=== PATIENT | male | born 1990 | race African-American/Black ===

== ENCOUNTER 2018-12-26 01:34 | Inpatient (IN) ==
[2018-12-26] MEDS ORDERED: ZOFRAN IV ONE (03:45)
[2018-12-26] MEDS ORDERED: NS 1,000 ML IV ONE ×2 (03:45→06:20)
--- NOTE | 2018-12-26 03:55 | PROVIDER DOCUMENTATION ---
HPI-Abdominal Pain/GI Problem - General Chief Complaint: N/V/D Stated Complaint: 24 HOUR BUG Time Seen by Provider: 12/26/18 03:12 Source: patient Allergies/Adverse Reactions: Patient Allergies Allergy/AdvReac Type Severity Reaction Status Date / Time No Known Allergies Allergy Verified 12/26/18 03:07 Home Medications: Home Medication List Medication Instructions Recorded Confirmed Last Taken Type NK [No Home Medications] 12/26/18 12/26/18 Unknown History - History of Present Illness-ABD Nature of Presenting Problems: 28 yo AAM presents with vomiting which started abut 12 hours ago and has not stopped. He has had a few loose stools but no fever or chills. Multiple patients are in ER with similar symptoms. His only abdominal surgery has been a FORENSIC PSYCHIATRIST shunt. Review of Systems - Adult - REVIEW OF SYSTEMS - ADULT ROS:: limited per condition Constitutional: reports: no symptoms reported Eyes: reports: no symptoms reported Ears, Nose, Mouth & Throat: reports: no symptoms reported Cardiovascular: reports: no symptoms reported Respiratory: reports: no symptoms reported Gastrointestinal: reports: see HPI, vomiting Genitourinary: reports: no symptoms reported Musculoskeletal: reports: no symptoms reported Integumentary: reports: no symptoms reported Neurological: reports: no symptoms reported Past History - Adult - PAST MEDICAL HISTORY-ADULT Review of Records: reports: Nursing Assessment Review - SOCIAL HISTORY Smoking: denies Substance Use: none/never Alcohol Use Frequency: never Physical Exam-General - PHYSICAL EXAM-ADULT Initial Vital Signs Reviewed: Yes - CONSTITUTIONAL General Appearance: alert, no apparent distress - EYES Eyes: PERRL/EOMI, pink conjunctivae - HEAD, EARS, NOSE, MOUTH & THROAT HENMT: normocephalic/atraumatic, moist mucous membranes, normal ENT inspection - NECK Neck: supple, normal inspection - RESPIRATORY Respiratory: chest non-tender, lungs clear, normal breath sounds - CARDIOVASCULAR Cardiovascular: normal peripheral pulses, regular rate, rhythm, no edema - GASTROINTESTINAL (ABDOMEN) Abdominal Exam: normal bowel sounds, non tender, soft, no organomegaly - LYMPHATIC Lymphatic: no adenopathy - MUSCULOSKELETAL Back Exam: normal inspection, no CVA tenderness, no vertebral tenderness Extremity: normal range of motion, non-tender - SKIN Integumentary: normal color, normal turgor, warm/dry - NEUROLOGIC Neurologic: grossly normal, no motor/sensory deficits - PSYCHIATRIC Psych/Mental Status: normal mood/affect, normal thought content, normal thought process, oriented x 3 Progress - PLAN OF CARE/RESULTS Progress/Plan/Lab Results: Vital Signs - 8 hr 12/26/18 03:02 Temperature 98.3 F Pulse Rate 71 Respiratory Rate 20 Blood Pressure 112/72 O2 Sat by Pulse Oximetry 99 Orders Category Date Time Status CBC WITH ELECTRONIC DIFF [HEME] Stat Lab 12/26/18 03:45 Uncollected COMPREHENSIVE METABOLIC PANEL [CHEM] Stat Lab 12/26/18 03:[address] W/POSS RFLX CULT [URINALYSIS] Stat Lab 12/26/18 03:08 Uncollected 0.9% Sodium Chloride Inj [Ns] 1,000 ml Med 12/26/18 03:45 Active IV 999 mls/hr Ondansetron [Zofran] Med 12/26/18 03:45 Discontinued 8 mg IV NOW ONE Result Diagrams: 12/26/18 04:15 12/26/18 04:15 - CT/MRI 1 CT Study: Abdomen, Pelvis ( FINDINGS: The gallbladder is contracted. No calcified stones or adjacent inflammation. The stomach is distended with fluid and debris. There are fluid distended small bowel loops. The distal small bowel loops are not distended. Normal liver, spleen, pancreas, adrenal glands, and kidneys. No hydronephrosis. Normal aorta. The urinary bladder is moderately distended and is normal. The scattered pelvic phleboliths. Normal appendix. No abscess. IMPRESSION: Early or partial small bowel obstruction.) Departure - Departure Date of Disposition Decision: 12/26/18 Time of Disposition Decision: 07:34 DIAGNOSIS: SBO (small bowel obstruction) Disposition: ADMITTED INPATIENT 09 Certified Medical Emergency: Emergent Condition: Stable Referrals and Follow-Ups: None,PCP [Primary Care Provider] - Work Excuses: Return to School/Parent Work - Critical Care Note This patient required my direct & personal management of CC.: No Attestation - Physician/ ANNIKA Attestation The physician spent face to face time with patient:: Yes Advanced Practice Provider documentation review:: Supervising physician onsite and consulted in the evaluation and care of this patient. The physician did have a face to face encounter with the patient.
[2018-12-26 05:17] LABS: BASO# 0.02 X1000 (0.0-0.2); BASO% 0.3 % (0.0-0.8); EOS# 0.05 X1000 (0.0-0.7); EOS% 0.7 % (0.0-10.0); HEMATOCRIT 49.3 % (42.0-52.0); HEMOGLOBIN 15.4 g/dL (14.0-18.0); IMM GRAN# 0.02 X1000 (0.0-0.04); IMM GRAN% 0.3 % (0.0-0.5); LYMPH% 18.6 % (20.5-51.1); MCH 25.2 PG (27-31); MCHC 31.2 g/dL (33-37); MCV 80.7 FL (81-99); MONO# 0.79 X1000 (0.11-0.59); MONO% 11.3 % (1.7-9.3); MPV 10.7 FL (7.4-10.4); NEUT# 4.81 X1000 (1.4-6.5); NEUT% 68.8 % (42.2-75.2); PLT 352 X1000 (130-400); RBC 6.11 XMIL (4.7-6.1); RDW 14.3 % (11.5-14.5); WBC 6.99 X1000 (4.8-10.8)
[2018-12-26 05:28] LABS: AGAP 10; ALBUMIN 4.6 g/dL (3.5-5.0); ALKALINE PHOSPHATASE 74 U/L (32-122); BUN 18 mg/dL (8-22); CALCIUM 10.1 mg/dL (8.8-10.2); CHLORIDE 102 mmol/L (98-107); COSMO 281; CREATININE 1.1 mg/dL (0.7-1.2); ESTIMATED GFR > 60; GLUCOSE 96 mg/dL (70-104); GOT 28 U/L (10-34); GPT 43 U/L (10-44); POTASSIUM 4.6 mmol/L (3.5-5.1); SODIUM 140 mmol/L (136-145); TCO2 28 mmol/L (25-35); TOTAL PROTEIN 7.5 g/dL (6.3-8.3)
--- NOTE | 2018-12-26 07:15 | Diag Imaging Result Doc PS360 ---
EXAM: CT ABD/PELVIS W/IV CONT ONLY HISTORY: Vomiting and abd pain TECHNIQUE: CT abdomen and pelvis with intravenous contrast COMPARISON: None. FINDINGS: The gallbladder is contracted. No calcified stones or adjacent inflammation. The stomach is distended with fluid and debris. There are fluid distended small bowel loops. The distal small bowel loops are not distended. Normal liver, spleen, pancreas, adrenal glands, and kidneys. No hydronephrosis. Normal aorta. The urinary bladder is moderately distended and is normal. The scattered pelvic phleboliths. Normal appendix. No abscess. IMPRESSION: Early or partial small bowel obstruction. This exam was performed using automated exposure control, adjustment of mA or kV according to patient size, and/or use of iterative reconstruction technique. Electronically signed by Raghav Smith 12/26/2018 7:12 AM
[2018-12-26 08:48] LABS: BILIRUBIN URINE NEGATIVE (NEGATIVE); BLOOD URINE NEGATIVE (NEGATIVE); CLARITY CLEAR (CLEAR); COLOR YELLOW; GLUCOSE URINE NEGATIVE (NEGATIVE); KETONE URINE 2+(Moderate) mg/dL (NEGATIVE); LEUKOCYTES URINE TRACE (NEGATIVE); NITRITE URINE NEGATIVE (NEGATIVE); PH URINE 6.5; PROTEIN URINE TRACE mg/dL (NEGATIVE); UROBILINOGEN URINE NORMAL
[2018-12-26 09:21] LABS: URINE BACTERIA 1+ /HFP; URINE SOURCE CLEAN CATCH
[2018-12-26] MEDS ORDERED: SODIUM CHLORIDE 0.9% INJ SCH (10:15)
[2018-12-26] MEDS: ZOFRAN IV PRN ×2 (10:46→21:20)
[2018-12-26] MEDS: PROTONIX IV SCH (10:48)
[2018-12-26] MEDS: MORPHINE IV PRN ×3 (10:50→21:20)
--- NOTE | 2018-12-26 11:08 | HISTORY AND PHYSICAL ---
CHIEF COMPLAINT: Vomiting x12 hours. HISTORY OF PRESENT ILLNESS: This is a 28-year-old gentleman with a prior history of hydrocephalus status post RADIO/TV TECHNICIAN shunt, who presents to the emergency room complaining of about 12 hours of vomiting. He stated that it has been persistent. He has had a few loose stools during this time. He denied any black or bloody vomitus or stools, any fevers or chills. He denied any known sick contacts. CT of the abdomen and pelvis revealed early small bowel obstruction. PAST MEDICAL HISTORY: Hydrocephalus. PAST SURGICAL HISTORY: RADIO/TV TECHNICIAN shunt. SOCIAL HISTORY: He smokes about a half a pack a day. He denies alcohol or illicit drug use. ALLERGIES: No known drug allergies. HOME MEDICATIONS: None. REVIEW OF SYSTEMS: Discussed with patient with pertinent positives stated in the HPI. He denies any syncope, dizziness, chest pain, palpitations, shortness of breath, cough, fever, chills, any black or bloody vomitus or stools, any hematuria, dysuria, frequency, or urgency. PHYSICAL EXAMINATION: GENERAL: This is a 28-year-old gentleman who is sitting up in the stretcher in the emergency room in no distress. VITAL SIGNS: Blood pressure is 133/82 with a heart rate of 64, respirations are 16, temperature is 98.5 degrees with room air saturation 99%. EYES: Pupils are equal, round, and react to light. EOMs are intact. Sclerae anicteric. HEENT: Head is normocephalic, atraumatic. Mucous membranes are moist. NECK: Supple with trachea midline. CARDIOVASCULAR: Regular rate and rhythm. S1 and S2 are appreciated. No murmurs noted. He has no lower extremity edema with peripheral pulses palpable x4 extremities. PULMONARY: Breath sounds are clear. Chest rises and falls symmetrically with respiration. Chest wall is nontender to palpation. GASTROINTESTINAL: Abdomen is soft, nontender, and nondistended with bowel sounds in all 4 quadrants. GENITOURINARY: He has no CVA. No suprapubic tenderness. SKIN: Warm and dry with no rashes or lesions noted. NEUROLOGIC: He is alert and oriented x3. LABORATORY: WBC is 6.9 with hemoglobin 15.4, hematocrit 49.3, and platelets of 352,000. Sodium 140, potassium 4.6, BUN 18, creatinine 1.1 with a glucose of 96. Urinalysis reveals 2+ ketones with 10 to 20 microscopic white blood cells, and 1+ bacteria. CT of the abdomen and pelvis reveals early or partial small bowel obstruction. ASSESSMENT AND PLAN: 1. Early or partial small bowel obstruction. 2. Vomiting secondary to #1. PLAN: The patient will be admitted to the medical-surgical floor. He will be NPO at present. We will give IV hydration as well as Protonix IV. We will repeat a CBC and CMP in the morning as well as a flat and upright of the abdomen. Further treatments pending hospital course. Dictated by JOSE Zaldivar for Angel Cintron MD This chart was documented by, JOSE Zaldivar and accurately reflects the services performed, treatment plan and medical decisions as attested by the providers signature Angel Cintron MD. cc: JOSE Zaldivar MD
[2018-12-26] MEDS ORDERED: PNEUMOVAX 23 IM ONE (11:34)
[2018-12-26] MEDS ORDERED: FLU VACCINE IM ONE (11:38)
--- NOTE | 2018-12-27 00:51 | HISTORY AND PHYSICAL ---
ADDENDUM: Patient seen and examined by myself. Full note dictated and discussed with nurse practitioner. The patient presented to the hospital ER noting to have increased nausea, vomiting, and abdominal pain. Thought initially he had the flu. Workup has demonstrated small bowel ileus. We will admit him to the hospital, keep him NPO, treat symptomatically, and will follow. cc: Angel Cintron MD
[2018-12-27] MEDS: MORPHINE IV PRN (04:36)
[2018-12-27 06:49] LABS: HEMATOCRIT 46.4 % (42.0-52.0); HEMOGLOBIN 14.7 g/dL (14.0-18.0); MCH 25.5 PG (27-31); MCHC 31.7 g/dL (33-37); MCV 80.6 FL (81-99); MPV 10.5 FL (7.4-10.4); RBC 5.76 XMIL (4.7-6.1); RDW 14.1 % (11.5-14.5); WBC 5.33 X1000 (4.8-10.8)
[2018-12-27 07:08] LABS: AGAP 11; ALBUMIN 3.8 g/dL (3.5-5.0); ALKALINE PHOSPHATASE 65 U/L (32-122); BUN 10 mg/dL (8-22); CALCIUM 8.9 mg/dL (8.8-10.2); CHLORIDE 100 mmol/L (98-107); COSMO 272; CREATININE 1.2 mg/dL (0.7-1.2); ESTIMATED GFR > 60; GLUCOSE 83 mg/dL (70-104); GOT 22 U/L (10-34); GPT 35 U/L (10-44); SODIUM 137 mmol/L (136-145); TCO2 26 mmol/L (25-35); TOTAL PROTEIN 6.4 g/dL (6.3-8.3)
--- NOTE | 2018-12-27 07:53 | Diag Imaging Result Doc PS360 ---
EXAM: ABDOMEN FLAT/UPRIGHT HISTORY: SBO TECHNIQUE: Flat and upright, two views COMPARISON: None. FINDINGS: There is stool throughout the colon. The bowel loops are not dilated. No organomegaly. No abnormal abdominal calcifications. A catheter overlies the lower right chest and the abdomen. The tip overlies the pelvis. This is likely a shunt catheter. IMPRESSION: Constipation Electronically signed by Raghav Smith 12/27/2018 7:51 AM
--- NOTE | 2018-12-27 09:57 | EKG Report ---
Test Performed on : 12/26/2018 10:34:45 AM Test Reason : cp Blood Pressure : / mmHG Vent. Rate : 064 BPM Atrial Rate : 064 BPM P-R Int : 170 ms QRS Dur : 094 ms QT Int : 386 ms P-R-T Axes : 065 093 065 degrees QTc Int : 398 ms Sinus rhythm. with sinus arrhythmia. with occasional premature ventricular complexes. Rightward axis Early repolarization Borderline ECG No previous ECGs available Unconfirmed Result
[2018-12-27] MEDS: PROTONIX IV SCH (10:02)
[2018-12-27] MEDS: LACTULOSE PO SCH (13:13)
[2018-12-27] MEDS ORDERED: NICODERM PATCH TD ONE (21:18)
--- NOTE | 2018-12-28 01:10 | PROGRESS NOTE ---
DATE: 12/27/2018 SUBJECTIVE: Patient notes he is still having some abdominal pain, but feeling better. Has not started drinking. Denies any fevers or chills. PHYSICAL EXAMINATION: Vital Signs: Reviewed. General: He is awake, alert, oriented. He is in no distress. HEENT: Normocephalic. Neck: Supple. CARDIOVASCULAR: Regular rate. Chest: Clear. Abdomen: Soft. Extremities: Moves all extremities. Neurologic: No changes. ASSESSMENT: 1. Nausea and vomiting. 2. Abdominal pain. 3. Myalgias. 4. Small bowel ileus. PLAN: We will advance diet. Hopefully home today but maybe tomorrow if his symptoms do not improve. Further orders as needed. cc: Angel Cintron MD
[2018-12-28] MEDS: LACTULOSE PO SCH (05:25)
[2018-12-28 05:39] VITALS: BP 129/63
--- NOTE | 2018-12-29 05:29 | DISCHARGE SUMMARY ---
ADMISSION DATE: 12/26/2018 DISCHARGE DATE: 12/28/2018 DISCHARGE DIAGNOSES: 1. Nausea and vomiting, resolved. 2. Abdominal pain, resolved. 3. Myalgias, resolved. 4. Small bowel ileus, resolved. HOSPITAL COURSE: Mr. Beard presented to the emergency room after vomiting for [address] of the abdomen and pelvis revealed an early or partial small bowel obstruction for which we held him NPO, gave IV hydration. He was initially held NPO, nausea and vomiting subsided. He was given lactulose, had a large bowel movement shortly after. Abdominal pain resolved. We have advanced his diet to a regular diet. He has tolerated this without any recurring abdominal pain, nausea, vomiting and thankfully is ready to be discharged. DISCHARGE PHYSICAL EXAMINATION: Vital Signs: Blood pressure is 129/63, with a heart rate of 54, respirations are 20, temperature is 97.5 degrees, with room air sats of 100%. Cardiovascular: Regular rate and rhythm. S1 and S2 are appreciated. Pulmonary: Breath sounds are clear with no increased work of breathing noted. Gastrointestinal: Abdomen is soft, nontender and nondistended with bowel sounds in all 4 quadrants. Neurologic: He is alert and oriented. DISCHARGE MEDICATIONS: None. FOLLOW-UP: He needs to follow up with his primary care physician or return to the emergency room for recurrence of any symptoms, temperature greater than 101, or any questions or concerns he may have. DISPOSITION: He is being discharged home in stable condition with family members. TIME SPENT: This is a greater than 30 minute discharge. Dictated by JOSE Zaldivar for Angel Cintron MD This chart was documented by, JOSE Zaldivar and accurately reflects the services performed, treatment plan and medical decisions as attested by the providers signature Angel Cintron MD. cc: JOSE Zaldivar MD
--- NOTE | 2018-12-30 00:44 | DISCHARGE SUMMARY ---
ADMISSION DATE: 12/26/2018 DISCHARGE DATE: 12/28/2018 DISCHARGE ADDENDUM: Patient seen and examined by myself. Full note dictated and discussed with nurse practitioner. On discharge, patient is awake, alert. He is in no distress. He is tolerating a full diet. He overall is feeling better. He will be discharged home. Please see full note. cc: Angel Cintron MD
== END 2018-12-28 10:15 | disposition home or self-care (01) | DRG 389 ==
LOC: P.ED 01:34 → P.MEDSURG 10:45
PROVIDERS: ADMIT Family Medicine; ATTEND Family Medicine
CPT/HCPCS: 74019; 74020; 74177; 80053; 81001; 85025; 85027; 87088; 93005; 99285; A9270; C9113; J2270; J2405; J7030; S0164